=== PATIENT | female | born 1940 | race Caucasian/White ===

== ENCOUNTER → 2018-03-01 | Outpatient (CLI) | payer OTHER | LOC: BRMIMAGING 09:30 | PROVIDERS: ATTEND Family Medicine | DX: M85.80 Other specified disorders of bone density and structure, unspecified site (principal); N95.9 Unspecified menopausal and perimenopausal disorder; Z13.828 Encounter for screening for other musculoskeletal disorder; Z78.0 Asymptomatic menopausal state; M81.0 Age-related osteoporosis without current pathological fracture ==